=== PATIENT | female | born 1990 | race Hispanic/Latino ===

== ENCOUNTER → 2017-09-04 | Day surgery (SDC) | payer OTHER ==
--- NOTE | 2017-09-04 09:30 | PDOC.EVN ---
Event Note - Event Note Event Note: @0920: H&P: Patient has full hand written H&P in cvhart..see schanned note. In Brief: CC: pain and frequency with urination at 25 weeks 4 days HPI: 26 yo [facility] patient without other issues with urinary sxs. Good FM, no VB, no CTX, no ROM, no other complaints. No fevers. Review of Systems: complete 12 points done and as per HPI Past medical: negative Past OB: PIH HX x 2 in past MEDS: ASA q d, PNV Allergies none Surge; None PHYSICAL VSSAFEB No VB or ROM CX deferred as no ctx Monitors mod variability, no CTX Assessment and plan: 25 weeks possible UTI (dysuria, frequency): Check UA Keep on monitors
[2017-09-04 09:46] VITALS: BMI 29.7
[2017-09-04 09:50] LABS: Bilirubin Negative (Negative); Blood, Urine Large (Negative); Clarity CLOUDY (Clear); Glucose, Urine (Dipstick) Negative (Negative); Leukocyte Large (Negative); Nitrite Positive (Negative); Protein, Urine (Dipstick) Negative (Neg-Trace); Specific Gravity, Urine 1.005 (1.002-1.036); Urobilinogen 0.2 mg/dL (0.2-1.0)
[2017-09-04 09:52] LABS: Bacteria/HPF 4+ HPF (None Seen); Hyaline Casts/LPF 0-3 HYALINE CAST LPF (0-3 Hyaline); Pathc Cast-AUWi Flag 0.14 (0-2.49); Squamous Epithelial 0-3 HPF (0-3)
--- NOTE | 2017-09-04 09:59 | PDOC.LDHP ---
Labor and Delivery H&P Chief complaint: other (Dysuria) HPI: 26 year old at 25.4 wks, uncertain of wether dated by LMP or 1st trimester u/s, presents with a 1 day history of dysuria and urinary frequency. Patient denies vaginal bleeding, vaginal discharge, LoF, headache, swelling, shortness of breath or chest pain. Patient has no complications in current . But she does have a history of pre-eclampsia in 2 prior pregnancies. Current gestational age (weeks): 25 (25.4) Due date: 12/14/17 Dating criteria: other (uncertain) Grav: 4 Para: 2 OB History Details: 1. Hx of pre-eclampsia in 2 prior pregnancies Current complications: none Abnormal US findings: No Current medications: pre-glenda vitamins, other (ASA) Allergies/Adverse Reactions: Allergies Allergy/AdvReac Type Severity Reaction Status Date / Time No Known Allergies Allergy Verified 09/04/17 09:24 Social history: none - Physical Exam Vital signs reviewed and normal: yes General: NAD, resting Heart: RRR Lungs: CTAB Abdomen: gravid Extremeties: no edema FHT: category 1, variability present [place] contractions every: None - Assessment Dysuria likely 2/2 UTI - UA pending - No history of recent antibiotic use - Otherwise asymptomatic - Plan for d/c home with oral antibiotics if UA positive sIUP - At 25.4 wks - No labor s/s Hx of pre-eclampsia - On ASA
--- NOTE | 2017-09-04 10:16 | PDOC.EVN ---
Event Note - Event Note Event Note: UA clean catch positive for large blood, positive nitrites, large leukocyte esterase, >50 WBC, and 4+ bacteria. Will send patient home on macrobid 100 mg BID for 7 days. Follow up with [facility] as scheduled.
== END | disposition home or self-care (01) ==
LOC: L&D/OP 08:40
PROVIDERS: ATTEND Obstetrics & Gynecology
DX: O99.89 Other specified diseases and conditions complicating pregnancy, childbirth and the puerperium (principal); R30.0 Dysuria; R35.0 Frequency of micturition; Z3A.25 25 weeks gestation of pregnancy; Z79.82 Long term (current) use of aspirin; Z79.899 Other long term (current) drug therapy
CPT/HCPCS: 81003; 81015

== ENCOUNTER 2017-10-29 12:27 | Emergency (ER) | payer OTHER, SELFPAY ==
[2017-10-29] MEDS ORDERED: Acetaminophen 500 MG TAB ONE (13:32)
[2017-10-29] MEDS ORDERED: Metoclopramide HCl 10 MG/2 ML VIAL ONE (13:32)
[2017-10-29] MEDS ORDERED: diphenhydrAMINE 50 MG/ML VIAL ONE (13:32)
[2017-10-29 14:01] LABS: Bilirubin Negative (Negative); Blood, Urine Trace (Negative); Clarity CLOUDY (Clear); Glucose, Urine (Dipstick) Negative (Negative); Leukocyte Moderate (Negative); Nitrite Negative (Negative); Protein, Urine (Dipstick) Negative (Neg-Trace); Specific Gravity, Urine 1.009 (1.002-1.036); Urobilinogen 0.2 mg/dL (0.2-1.0)
[2017-10-29 14:03] LABS: Bacteria/HPF None Seen HPF (None Seen); Hyaline Casts/LPF 0-3 HYALINE CAST LPF (0-3 Hyaline)
== END 2017-10-29 15:18 | disposition home or self-care (01) ==
LOC: ERS 12:27
DX: O99.89 Other specified diseases and conditions complicating pregnancy, childbirth and the puerperium (principal); R51 Headache; Z3A.33 33 weeks gestation of pregnancy
CPT/HCPCS: 81003; 81015; 87086; 96365; 96375; J1200; J2765

== ENCOUNTER 2017-11-08 09:58 | Day surgery (SDC) | payer SELFPAY ==
[2017-11-08 10:36] VITALS: BMI 30.9
--- NOTE | 2017-11-08 11:21 | PDOC.LDHP ---
Labor and Delivery H&P Chief complaint: other (Numbness and tingling in left arm) HPI: This is a 27 yo H female at 34.6 wks by LMP consistent with 9.1 wk ultrasound with a chief complaint of left arm numbness and tingling. She reports it started last Wednesday and was consistent through the week. One Wednesday, the pain was the worst 8/10 and located in her mid anterior forearm. Pt. complains that the pain has prevented her from sleeping. She states that her hand feels weak and that sensation is different between her two hands. Pt. denies injury. Tylenol did not make the pain better. Also states she had a headache described as all over her head. She also had a brief (seconds) time of seeing stars while driving. Current gestational age (weeks): 34 (34.6) Due date: 12/14/17 Dating criteria: last menstrual period, first trimester ultrasound (Confirmed by 9.1 wk) Grav: 4 () Para: 2 OB History Details: Hx of preeclampsia x2, history of ectopic with D&C. Current complications: none Abnormal US findings: No Current medications: pre-glenda vitamins Previous surgical history: other (D&C) Social history: none - Physical Exam Vital signs reviewed and normal: yes General: NAD, resting Heart: RRR Lungs: nonlabored breathing Abdomen: NTTP Extremeties: no edema FHT: variability present (Baseline 140s with accelerations, occational contractions) - Assessment This is a 27 yo female at 34.6 Carpal tunnel -Pt. has some findings consistent with carpel tunnel. We are having her fitted for a cockup splint and continuing tylenol. We are also providing reassurance about her condition and her . We will have pt. follow up with Dr. Collado tomorrow. Concern for pre-eclampsia -Pt. has hx or pre-eclampsia and has been having headaches and has seen some stars transiently. Her BP has been below worrisome ranges and a urine 10 days ago was negative for protein. We are checking urine protein and creatinine as well as CBC and CMP to rule out any other pre-eclamptic findings at this time. Disposition: home today <Hi Garcia - Last Filed: 11/08/17 11:47> <Viraj Irizarry - Last Filed: 11/10/17 15:51> Allergies/Adverse Reactions: Allergies Allergy/AdvReac Type Severity Reaction Status Date / Time No Known Allergies Allergy Verified 11/08/17 10:25 Attending Addendum - Attending Addendum Date/Time: 11/10/17 6261 I personally evaluated the patient and discussed the management with Dr. Garcia on 11/08/17 I agree with the History, Examination, Assessment and Plan documented above with any addition or exceptions noted below. 27 y.o. at 34.6 wks EGA with h/o preeclampsia in prior but none so far this time, here for Left forearm numbness, paresthesias and ache, particularly at night but all day as well for 1 week worsened today. PE showed positive Tinnel's and Phalen's signs, lungs CTA, no edema, normal DTR's. FHT' s Category I with no contractions. Reported Headache and vision changes were brief (<15 minutes for CARMICHAEL, seconds for scotomata) and self-resolved yesterday. W/U negative for objective findings of pre-ecclampsia. Will arrange for CTS splint and discharge to f/u soon in clinic. Labor and Pre-E precautions given prior to d/c. <Viraj Irizarry A - Last Filed: 11/10/17 15:51>
[2017-11-08 11:46] LABS: #Basophils 0.1 thou/uL (0.0-0.2); #Eosinphils 0.1 thou/uL (0.0-0.7); #Lymphocytes 1.8 thou/uL (1.20-3.40); #Monocytes 0.6 thou/uL (0.11-0.59); #Neutrophils 4.3 thou/uL (1.40-6.50); %Basophils 0.7 % (0.0-1.0); %Eosinophils 1.5 % (0.0-10.0); %Monocytes 9.3 % (0.0-10.0); %Neutrophils 62.4 % (42.0-75.0); Hemoglobin 11.1 g/dL (12.0-16.0); Mean Corpuscular HGB CONC 34.1 g/dL (32.0-36.0); Mean Corpuscular Hemoglobin 29.1 pg (27.0-31.0); Mean Corpuscular Volume 85.5 fL (78.0-98.0); Mean Platelet Volume 7.9 fL (7.4-10.4); Platelet Count 253 thou/uL (130-400); RBC Distribution Width 13.3 % (11.5-14.5); Red Blood Cell (RBC) Count 3.81 mill/uL (4.20-5.40); White Blood Cell (WBC) Count 6.8 thou/uL (4.8-10.8)
[2017-11-08 12:15] LABS: ALT (SGPT) 17 U/L (8-55); AST (SGOT) 17 U/L (5-34); Albumin 3.3 g/dL (3.5-5.0); Alkaline Phosphatase 159 U/L (40-150); Anion Gap 12 mmol/L (10-20); BUN (Urea Nitrogen) 6 mg/dL (7.0-18.7); Bilirubin, Total 0.2 mg/dL (0.2-1.2); Calc. Creatinine Clearance 150 mL/min (70-130); Carbon Dioxide 23 mmol/L (22-29); Chloride 106 mmol/L (98-107); Estimated GFR-MDRD Greater than 90; Globulin 2.7 g/dL (2.4-3.5); Glucose 80 mg/dL (70-105); Potassium 3.7 mmol/L (3.5-5.1); Sodium 137 mmol/L (136-145)
[2017-11-08 12:40] LABS: Creatinine, Urine 62.67 mg/dL (47-110); Protein, Urine Random Quant Less than 10 mg/dL (1-14)
== END 2017-11-08 14:20 | disposition home health service (06) ==
LOC: L&D/OP 09:58
PROVIDERS: ATTEND Family Medicine
DX: O99.89 Other specified diseases and conditions complicating pregnancy, childbirth and the puerperium (principal); R20.2 Paresthesia of skin; R20.0 Anesthesia of skin; Z3A.34 34 weeks gestation of pregnancy
CPT/HCPCS: 36415; 80053; 82570; 84156; 85025; 99283

== ENCOUNTER 2017-11-17 12:37 | Day surgery (SDC) | payer SELFPAY ==
[2017-11-17 13:25] VITALS: BMI 31.6
--- NOTE | 2017-11-17 13:35 | PDOC.LDHP ---
Labor and Delivery H&P Chief complaint: other (UTI sx) HPI: 27 y/o at 36w1d, patient of [facility], presents with frequency and dysuria. Was treated for UTI 2 weeks ago. Has had 1 ctx per hour and some increased mucus. Denies LOF, VB, or decreased FM. ROS neg for HEENT, cv, pulm, gi, gu, neuro, psych, skin, musculoskeletal, or constitutional symptoms other than mentioned above. OB History Details: 2 prior late SVDs Current complications: none Current medications: pre- vitamins Previous surgical history: none Allergies/Adverse Reactions: Allergies Allergy/AdvReac Type Severity Reaction Status Date / Time No Known Allergies Allergy Verified 11/08/17 10:25 Social history: none - Physical Exam Vital signs reviewed and normal: yes General: NAD, resting Lungs: nonlabored breathing Abdomen: gravid Extremeties: no edema FHT: category 1 (130s, mod variability, + accels, no decels) [place] contractions every: occasional - Vaginal Exam cm dilated: 1 Effacement: 50% Station: -2 - OB Labs Additional Labs: Laboratory Results - last 24 hr 11/17/17 13:45 Urine Color YELLOW Urine Clarity CLEAR Urine pH 7.0 Ur Specific [place] 1.008 Urine Protein Negative Urine Glucose (UA) Negative Urine Ketones Negative Urine Blood Small H Urine Nitrite Negative Urine Bilirubin Negative Urine Urobilinogen 0.2 Ur Leukocyte Esterase Trace H Urine RBC 0-3 Urine WBC 0-3 Ur Squamous Epith Cells 0-3 Ur Transition Epith Cell 0-3 Ur Renal Epithelial Cell 0-3 Urine Bacteria None Seen Hyaline Casts 0-3 HYALINE CAST - Assessment 27 y/o at 36w1d with no e/o UTI or active labor. status reassuring with reactive NST. - Plan -: D/c home with precautions. Advised to keep all appointments and continue daily FACs.
[2017-11-17 14:13] LABS: Bilirubin Negative (Negative); Blood, Urine Small (Negative); Clarity CLEAR (Clear); Glucose, Urine (Dipstick) Negative (Negative); Leukocyte Trace (Negative); Nitrite Negative (Negative); Protein, Urine (Dipstick) Negative (Neg-Trace); Specific Gravity, Urine 1.008 (1.002-1.036); Urobilinogen 0.2 mg/dL (0.2-1.0)
[2017-11-17 14:14] LABS: Bacteria/HPF None Seen HPF (None Seen); Hyaline Casts/LPF 0-3 HYALINE CAST LPF (0-3 Hyaline); Pathc Cast-AUWi Flag 0.29 (0-2.49); RBC/HPF 0-3 HPF (0-3); Squamous Epithelial 0-3 HPF (0-3); WBC/HPF 0-3 HPF (0-3)
[2017-11-17 14:24] LABS: Renal Epithelial 0-3 HPF (0-3); Transitional Epithelial 0-3 HPF (0-3)
== END 2017-11-17 14:38 | disposition home or self-care (01) ==
LOC: L&D/OP 12:37
PROVIDERS: ATTEND Obstetrics & Gynecology
DX: O47.03 False labor before 37 completed weeks of gestation, third trimester (principal); Z3A.36 36 weeks gestation of pregnancy
CPT/HCPCS: 81001; 99283

== ENCOUNTER 2017-12-06 02:01 | Day surgery (SDC) | payer OTHER ==
[2017-12-06 02:35] VITALS: BP 128/69; TEMP 98.4; BMI 31.4
--- NOTE | 2017-12-06 02:43 | PDOC.FPROB ---
FMR OB H&P: HPI - History of Present Illness Chief Complaint: Loss of fluid History of Present Illness: 27 year old at 38.6 wks by LMP consistent with 9.1 wk sono presents with CC of loss of of fluid. Patient reports she lost a gush of clear fluid at 12:50 this morning. Reports some mild contractions 5-10 min apart. Denies vaginal bleeding. FMR OB H&P: Current - Care : 4 Para: 2 (1112) Gestational age: 38.6 Due date: 12/14/2017 Dating Criteria: LMP/9.1wk sono - OB Labs Blood type: O RH: positive Antibody Screen: negative HIV: negative RPR: negative HepBsAg: negative Rubella: immune 1 hour gtt: 114 GBS: negative FMR OB H&P: History - Social History Social History: No tobacco, alcohol, or drug use. FMR OB H&P: Medications - Current Home Medications: Medication Instructions Recorded Confirmed Type 21/Iron Fu/Folic Acid 1 tablet PO DAILY 09/12/12/06/17 History [ Complete Caplet] Allergies/Adverse Reactions: Allergies Allergy/AdvReac Type Severity Reaction Status Date / Time No Known Allergies Allergy Verified 12/06/17 02:23 FMR OB H&P: ROS - Review of Systems General: denies: fever/chills Eyes: denies: vision changes, double vision Respiratory: denies: cough, shortness of breath Gastrointestinal: denies: nausea, vomiting Genitourinary (Female): reports: contractions. denies: vaginal discharge, vaginal bleeding FMR OB H&P: Vital Signs - Maternal Vital signs: Vital Signs - First Documented Temp Pulse Resp BP 98.4 F 71 16 128/69 12/06/17 02:22 12/06/17 02:22 12/06/17 02:22 12/06/17 02:22 - Heart Tones Baseline: 130 Variability: moderate Acceleration: present Deceleration: absent Category: category 1 [place] contractions every: 6 FMR OB H&P: Physical Exam - Physical Exam General: NAD Heart: RRR, normal S1/S2 General: CTAB, no respiratory distress, no wheezing Abdomen: gravid, non-tender FMR OB H&P: A/P Discussion: Date/Time: 12/06/17 0241 @ 38.6 wks with CC of loss of fluid 1. tIUP @ 38.6 wks - amnisure negative - sterile spec exam performed with cough maneuver at 03:15-03:25 showed mucus discharge, not suggestive of ROM - 05/23/-2 - Will get sono to check LIGIA. If normal, will discharge home with ROM ruled out 2. History of preE - BPs have been normal this - BP WNL today - on ASA ppx This H&P was discussed with Dr. Castellanos who agree with the above documentation and plan.
[2017-12-06 02:44] LABS: Amnisure Test No Membranes Rupture (No Rupture)
[2017-12-06 02:45] LABS: Amnisure Internal Control QC ACCEPTABLE (ACCEPTABLE)
--- NOTE | 2017-12-06 03:35 | PDOC.EVN ---
Event Note - Event Note Event Note: Sterile Spec Exam Faculty note: Exam at : Sterile Spec exam discussed with patient by me at bedside. I performed SSE with Martha (our FM Resident) and did not see evidence of ROM although she did have a loose mucous plug at cervical OS. No pooling with manuevers. Amnisure was negative. I have discussed these findings with the patient and partner at bedside. I have placed a pad on the vagina to see if leakage occurs. I have ordred a limited sono to check LIGIA as ancillary test (will keep if oligo) due to patient reporting "loss of fluid" at home. Cervix 05/23/2 by me, after sterile spec exam. If sono shows normal LIGIA, with normal SSE and negative ...I will be comfortable sending home. Limitations of sono in detecting ROM was discussed with her.
--- NOTE | 2017-12-06 04:23 | PDOC.EVN ---
Event Note - Event Note Event Note: LIGIA by isabel 8, cephalic Perineal pad dry OK for discharge
--- NOTE | 2017-12-06 09:20 | ULT ---
PRELIMINARY REPORT/[facility]/EMERGENTY AFTER-HOURS PROCEDURE US After First Trimester, Transabdominal CLINICAL HISTORY: 27 years old, female; Signs and symptoms; Lmp or gestational age (in weeks): 38wks; Other: Possible r om; TECHNIQUE: Real-time transabdominal obstetrical ultrasound of the maternal pelvis and a second or third trimeste r with image documentation. COMPARISON: No relevant prior studies available. FINDINGS: Single living fetus in cephalic position. Posterior/left-sided placenta. No visible placental abnormality on the provided images. Amniotic fluid volume appears within normal limits, LIGIA 8.5 cm. BPD: , 9.7 cm. , 39 weeks, 6 days HC: , 34.2 cm. , 39 weeks, 3 days AC: , 33.2 cm. , 37 weeks, 1 day FL: , 7.3 cm. , 37 weeks, 1 day Composite age: 38 weeks, 3 days. Estimated weight: 3218 grams, (7 lbs. 4 oz.). heart activity documented by the technologist, 135 bpm. Complete/detailed evaluation of anatomy was not performed at this time. No visible maternal adnexal abnormality. The urinary bladder was not completely evaluated/imaged at this time. IMPRESSION: Single living fetus, composite age: 38 weeks, 3 days. Amniotic fluid volume appears within normal limits, LIGIA 8.5 cm. Posterior/left-sided placenta. No visible placental abnormality on the provided images. Other details discussed above. Thank you for allowing us to participate in the care of your patient. Dictated and Authenticated by: Omid Miranda MD 12/06/2017 4:52 AM Central Time ([place] & [place]) FINAL REPORT LIMITED OB ULTRASOUND GREATER THAN 14 WEEKS: EMERGENCY AFTER HOURS EXAMINATION TIME: 4:08 a.m. DATE: 12/06/17. FINDINGS/IMPRESSION: Gestational age 38 weeks 3 days. Estimated weight 3218 grams. 135 b.p.m. Cephalic presentati on with posterior and left-sided placenta. anatomy was not completely evaluated on this study; however, 4-chamber heart, stomach, kidneys, bladder, and spine were evaluated and appear unremarkable as visualized. POS: [facility]
== END 2017-12-06 04:30 | disposition home or self-care (01) ==
LOC: L&D/OP 02:01
PROVIDERS: ATTEND Obstetrics & Gynecology
DX: O99.89 Other specified diseases and conditions complicating pregnancy, childbirth and the puerperium (principal); N89.8 Other specified noninflammatory disorders of vagina; Z3A.38 38 weeks gestation of pregnancy; Z79.899 Other long term (current) drug therapy
CPT/HCPCS: 76815; 84112; 99283

== ENCOUNTER 2017-12-13 04:17 | Inpatient (IN) | payer MEDICAID, OTHER, SELFPAY ==
--- NOTE | 2017-12-13 05:04 | PDOC.LDHP ---
Labor and Delivery H&P Chief complaint: contractions HPI: Patient presents for painful contractions 11/05 that began at 1am occurring q3- 5minutes. Vaginal mucus discharge with minimal blood began at that time as well. Denies loss of fluid, nausea, vomiting, chest pain, SOB, change in vision. Current gestational age (weeks): 39 (39.6) Due date: 12/14/17 Dating criteria: last menstrual period (consistent with 9.2 wk sono) Grav: 4 Para: 2 (1112) OB History Details: History of PreE. No BP abnormalities this . Current complications: none Abnormal US findings: No (Limited U/S completed 12/06 cephalic position, posterior/L-side placenta) Past Medical History: none Current medications: pre-glenda vitamins, other (was taking aspirin. Last taken 1 wk ago.) Previous surgical history: none Social history: none - Physical Exam Vital signs reviewed and normal: yes General: NAD Heart: RRR Lungs: nonlabored breathing Abdomen: gravid Extremeties: trace edema FHT: category 1 [place] contractions every: 2-3 - Vaginal Exam cm dilated: 3 (3.5) Effacement: 75% (80) Station: -2 - OB Labs Blood type: O RH: positive Antibody Screen: negative HIV: negative RPR: negative HEPSAg: negative 1 hour GCT: negative GBS: negative Urine drug screen: not done Rubella: immune - Plan -: @ 39.6 wks presents with painful contractions 1. tIUP @ 38.6 wks - 3.5/80/-2 @ 0450 - painful contractions q2-3 min - no loss of fluid. reports mucus discharge with minimal blood - continue FHR - will recheck in 2 hours to assess for cervical change 2. History of preE - BPs have been normal this - BP WNL today - was on ASA for ppx This H&P was discused with Dr. Harper who agrees with the above documentation and plan. <Martha Young - Last Filed: 12/13/17 05:42> <Chapo Harper - Last Filed: 12/13/17 06:28> Allergies/Adverse Reactions: Allergies Allergy/AdvReac Type Severity Reaction Status Date / Time No Known Allergies Allergy Verified 12/13/17 05:14 Attending Addendum - Attending Addendum Date/Time: 12/13/17 6762 I have evaluated the patient and discussed the management with Dr. Young. I agree with the Assessment and Plan documented above. <Chapo Harper - Last Filed: 12/13/17 06:28>
[2017-12-13 05:11] VITALS: BMI 31.1
[2017-12-13] MEDS ORDERED: NS / Oxytocin 40 units/1000ml 1,000 ML IV PRN (07:17)
[2017-12-13] MEDS ORDERED: Ibuprofen 800 MG TAB PO PRN (07:17)
[2017-12-13] MEDS ORDERED: Ondansetron HCl/PF 4 MG/2 ML Vial IVP PRN ×3 (07:17→21:31)
[2017-12-13] MEDS ORDERED: Lidocaine 1% (PF) 30 ML VIAL SC PRN (07:17)
[2017-12-13] MEDS ORDERED: Promethazine HCl 25 MG/ML VIAL IM PRN ×2 (07:17→16:42)
--- NOTE | 2017-12-13 07:18 | PDOC.LDPN ---
Labor & Delivery Progress Note - Subjective Subjective: painful contractions - Objective Vital signs reviewed and normal: yes General: resting Dilation: 5 Effacement: 75% Station: -3 [place] contractions every: 3-4min Plan: continue plan of care -: @ 39.6 wks presents with painful contractions 1. tIUP @ 39.6 wks - /-2 @0700 - painful contractions q3-4min - Cat I, continue FHR - will admit due to labor, recheck in 2 hours to assess for cervical change 2. History of preE - BPs have been normal this - BP WNL today - was on ASA for ppx <Evelyn Kaye - Last Filed: 12/13/17 07:23> Attending Addendum - Attending Addendum Date/Time: 12/16/17 0832 I personally evaluated the patient and discussed the management with Dr. Kaye. I agree with the Examination, Assessment and Plan documented above. <Chapo Harper - Last Filed: 12/16/17 08:33>
[2017-12-13] MEDS: Lactated Ringer's 1,000 ML IV SCH ×3 (07:52→19:16)
[2017-12-13 08:10] LABS: Hemoglobin 11.7 g/dL (12.0-16.0); Mean Corpuscular HGB CONC 32.8 g/dL (32.0-36.0); Mean Corpuscular Volume 85.3 fL (78.0-98.0); Mean Platelet Volume 8.1 fL (7.4-10.4); Platelet Count 239 thou/uL (130-400); RBC Distribution Width 14.1 % (11.5-14.5); Red Blood Cell (RBC) Count 4.19 mill/uL (4.20-5.40); White Blood Cell (WBC) Count 10.7 thou/uL (4.8-10.8)
[2017-12-13 08:50] LABS: HBSAg Index 0.17 S/CO (0-0.99); Hep B Surf Ag Non-Reactive S/CO (NonReactive); Syphilis Antibody Nonreactive (Nonreactive); Syphilis Antibody Index 0.02 S/CO (<1.00 Non-Reactive)
--- NOTE | 2017-12-13 09:26 | PDOC.LDPN ---
Labor & Delivery Progress Note - Subjective Subjective: comfortable, painful contractions, vaginal pressure - Objective Vital signs reviewed and normal: yes General: NAD, resting Dilation: 6 Effacement: 75% (80) Station: -2 FHT: category 1 [place] contractions every: 3-5min Plan: continue plan of care -: @ 39.6 wks presents with painful contractions 1. tIUP @ 39.6 wks - /-2 @0900 - painful contractions q3-5min - Cat I, continue FHR - will admit due to labor, recheck in 2 hours to assess for cervical change, possible AROM if cervix is more midposition 2. History of preE - BPs have been normal this - BP WNL, will continue to monitor - was on ASA for ppx
--- NOTE | 2017-12-13 11:23 | PDOC.LDPN ---
Labor & Delivery Progress Note - Subjective Subjective: comfortable, painful contractions - Objective Vital signs reviewed and normal: yes General: NAD, resting Dilation: 7 Effacement: 75% Station: -2 FHT: category 1 [place] contractions every: 3-4min AROM: meconium stained fluid (light mec) Plan: continue plan of care -: @ 39.6 wks presents with painful contractions 1. tIUP @ 39.6 wks - //-2 @1100 - ctx 3-5min - Cat I, continue FHR - AROM at 1115, light mec - continue mgmt of active labor 2. History of preE - BPs have been normal this - BP WNL, will continue to monitor - was on ASA for ppx
[2017-12-13] MEDS ORDERED: NS w/ Oxytocin 10 units 500 ML ONE (13:16)
[2017-12-13] MEDS ORDERED: DISCONTINUE ALL PREVIOUS NARCOTICS FS SCH (15:45)
[2017-12-13] MEDS ORDERED: Bupivacaine 0.5% 20 ML, fentaNYL Citrate/PF 400 MCG in Sodium Chloride 0.9% 72 ML EPIDURAL SCH (15:45)
--- NOTE | 2017-12-13 15:52 | PDOC.LDPN ---
Labor & Delivery Progress Note - Subjective Subjective: painful contractions, vaginal pressure - Objective Vital signs reviewed and normal: yes General: breathing through contractions Dilation: 7.5 Effacement: 100% Station: 0 [place] contractions every: 3-5min Plan: continue plan of care -: 1. sIUP, active labor -SVE: 7.5/100/0 at 1526 -Pit at 6 -FHT: Cat 1 -CTX: 3-5min -baby position is ROT, will use peanut ball to encourage reposition of baby -desires epidural, order placed 2. hx of preE in prior -BPs during admission have been WNL -will continue to monitor
--- NOTE | 2017-12-13 15:56 | PDOC.LDPN ---
Labor & Delivery Progress Note - Subjective Subjective: painful contractions, vaginal pressure - Objective Vital signs reviewed and normal: yes General: NAD, breathing through contractions Dilation: 7 Effacement: 75% (80) Station: -1 FHT: category 1 Plan: continue plan of care -: 1. sIUP, active labor -SVE: /-1 at 1315 -FHT: Cat 1 -CTX: 4-6min -will start pit at this time 2. hx of preE in prior -BPs during admission have been WNL -will continue to monitor
[2017-12-13] MEDS ORDERED: Bupivacaine 0.5% 10 ML VIAL ONE (16:02)
[2017-12-13] MEDS ORDERED: Fentanyl 100 MCG/2 ML VIAL ONE (16:02)
[2017-12-13] MEDS: NS w/ Oxytocin 10 units 500 ML IV SCH (16:34)
[2017-12-13] MEDS ORDERED: Bupivacaine 0.25% 10 ML VIAL EPIDURAL ONE (16:42)
[2017-12-13] MEDS ORDERED: Naloxone HCl 0.4 mg/ml Vial IVP PRN ×2 (16:42)
[2017-12-13] MEDS ORDERED: Fentanyl 100 MCG/2 ML VIAL I-THECAL ONE (16:42)
[2017-12-13] MEDS ORDERED: Lactated Ringer's 500 ML IV PRN (16:42)
[2017-12-13] MEDS ORDERED: Eucerin (Mineral Oil/Petrolatum,White) 30 gm Jar TOP PRN (16:42)
[2017-12-13] MEDS ORDERED: diphenhydrAMINE 50 MG/ML VIAL IVP PRN (16:42)
[2017-12-13] MEDS ORDERED: ePHEDrine/0.9% NaCl/PF SYRINGE 50 mg/10 ml SLOW IVP PRN (16:42)
[2017-12-13] MEDS ORDERED: Acetaminophen 325 MG TAB PO PRN (16:42)
[2017-12-13] MEDS ORDERED: Communication Order-Pharmacy FS SCH (16:45)
[2017-12-13] MEDS ORDERED: fentaNYL Citrate/PF 400 MCG, Bupivacaine 0.5% 20 ML in Sodium Chloride 0.9% 72 ML EPIDURAL SCH (16:45)
--- NOTE | 2017-12-13 17:05 | PDOC.LDPN ---
Labor & Delivery Progress Note - Subjective Subjective: comfortable, vaginal pressure - Objective Vital signs reviewed and normal: yes General: NAD, resting Dilation: 9 Effacement: 100% Station: 0 FHT: category 1 [place] contractions every: 2-3min Plan: continue plan of care -: 1. sIUP, active labor -SVE: 9/100/0 at 1526 -Pit at 6 -FHT: Cat 1 -CTX: 3-5min -baby position is ROT, will use peanut ball to encourage reposition of baby -epidural in place 2. hx of preE in prior -BPs during admission have been WNL -will continue to monitor
[2017-12-13] MEDS ORDERED: Misoprostol 200 MCG TAB ONE (21:24)
[2017-12-13] MEDS ORDERED: Adacel (T-DAP) 0.5 ML VIAL IM ONE (21:31)
[2017-12-13] MEDS ORDERED: Milk Of Magnesia 30 ML UDCUP PO PRN (21:31)
[2017-12-13] MEDS ORDERED: Bisacodyl 10 MG SUPP PR PRN (21:31)
[2017-12-13] MEDS ORDERED: Lanolin Ointment 7 GM TUBE TOP PRN (21:31)
[2017-12-13] MEDS ORDERED: HYDROcodone/Acetaminophen 5/325 mg Tablet PO PRN (21:31)
[2017-12-13] MEDS ORDERED: Benzocaine/Menthol 20-0.5% 60 ML CAN TOP PRN (21:31)
--- NOTE | 2017-12-13 21:43 | PDOC.OPDEL ---
OB Operative/Delivery Note Delivery Dr/Surgeon: Tobias/Hannah Assist: Attending Mark Pre-Delivery Diagnosis: active labor Procedure/Post Delivery Dx: operative vaginal delivery (Vacuum applied 2/2 failure to descend, maternal exhaustion and variable decelerations after prolonged second stage of labor. Baby initially in ROT position. Vacuum applied for total of 2 contractions and removed for final delivery. No complications and mother and baby tolerated procedure well.) Weeks gestation: 39 (+6) Anesthesia: epidural - Additional Findings/Plan Placenta delivered: spontaneous Repaired Obstetrical Laceration: none Estimated blood loss: 400 Compilations/Other Findings: Vacuum assisted delivery 2/2 prolonged second stage of labor, maternal exhaustion and recurrent variable decelerations with contractions. 800mcg given pr post . Viable F delivered over intact perineum in ROT position with vacuum assist @ 2112 and apgars 9/9. Post delivery plan: routine recovery <Rehan Collado - Last Filed: 12/13/17 21:38> Attending Addendum - Attending Addendum Date/Time: 12/13/172224 I was present and scrubbed for the entire successful vacuum-assisted vaginal delivery for maternal exhaustion, variable decelerations, and acynclitism with minimal descent with maternal pushing alone. EFW 3500. There were no pop-offs and baby delivered over an intact perineum. Mom and baby tolerated the procedure well. <Yesy Flores - Last Filed: 12/13/17 22:29>
[2017-12-13] MEDS ORDERED: NS / Oxytocin 40 units/1000ml 1,000 ML IV SCH (21:45)
[2017-12-14] MEDS: Ibuprofen 800 MG TAB PO SCH ×4 (01:55→21:18)
[2017-12-14 05:14] LABS: Hemoglobin 11.3 g/dL (12.0-16.0); Mean Corpuscular HGB CONC 33.6 g/dL (32.0-36.0); Mean Corpuscular Hemoglobin 28.9 pg (27.0-31.0); Mean Corpuscular Volume 85.8 fL (78.0-98.0); Mean Platelet Volume 8.9 fL (7.4-10.4); Platelet Count 227 thou/uL (130-400); RBC Distribution Width 14.3 % (11.5-14.5); Red Blood Cell (RBC) Count 3.91 mill/uL (4.20-5.40); White Blood Cell (WBC) Count 17.5 thou/uL (4.8-10.8)
[2017-12-14] MEDS: Lactated Ringer's 1,000 ML IV SCH ×3 (07:42→23:50)
[2017-12-14] MEDS ORDERED: HYDROcodone/Acetaminophen 5/325 mg Tablet PO PRN (07:44)
--- NOTE | 2017-12-14 07:47 | PDOC.PP ---
Post Progress Note Post Day #: 1 Subjective: 27 yo G4 pp day 1 delivered via vacuum assisted vaginal delivery. Minor vaginal and perineal pain controlled with pain medications and cold pack. Denies fever, chills, cp, sob. No acute events overnight. Scant lochia. PO intake tolerated: yes Flatus: yes Ambulation: yes Vital Signs (12 hours) Temp Pulse Resp BP Pulse Ox 12/14/17 07:35 98.6 F 77 20 99/51 L 96 12/14/17 02:45 98.1 F 97 18 106/56 L 97 12/14/17 01:45 98.0 F 83 18 110/58 L 96 12/14/17 00:45 98.0 F 68 16 110/56 L 95 12/13/17 23:35 98.5 F 56 L 18 129/63 99 Weight Weight 79.379 kg - Physical Examination General: NAD Cardiovascular: no m/r/g, RRR Respiratory: clear to auscultation bilaterally, non-labored breathing Abdominal: + bowel sounds, lochia, no distention, appropriately TTP Neurological: no gross focal deficits Psychiatric: A&Ox3, normal affect Result Diagrams: 12/14/17 04:46 Additional Labs: Post Labs Blood Type O POSITIVE 12/13/17 08:01 Hep Bs Antigen Non-Reactive S/CO (NonReactive) 12/13/17 08:01 (1) Vaginal delivery Code(s): O80 - ENCOUNTER FOR FULL-TERM UNCOMPLICATED DELIVERY Status: Acute - Assessment/Plan TIUP, dlievered: - pp day 1 s/p vacuum assisted delivery - tolerating po, passing flatus, ambulating - Hgb stable - pain control prn norco, ice pack and amber ibuprofen - will plan for dc to home tomorrow
[2017-12-14] MEDS: Docusate Calcium (SURFAK) 240 MG CAP PO SCH ×2 (09:47→21:18)
[2017-12-14] MEDS: Prenatal Vitamin 1 TAB PO SCH (09:47)
[2017-12-14] MEDS: NS w/ Oxytocin 10 units 500 ML IV SCH (10:37)
[2017-12-15] MEDS: Ibuprofen 800 MG TAB PO SCH (05:56)
[2017-12-15] MEDS: Lactated Ringer's 1,000 ML IV SCH (05:57)
--- NOTE | 2017-12-15 06:26 | PDOC.PP ---
Post Progress Note Post Day #: 2 Subjective: Doing well, no problems with urination. Wants [facility] home today PO intake tolerated: yes Flatus: yes Ambulation: yes Vital Signs (12 hours) Temp Pulse Resp BP Pulse Ox 12/14/17 20:00 97.9 F 63 18 127/67 96 Weight Weight 175 lb - Physical Examination General: NAD Cardiovascular: no m/r/g Respiratory: clear to auscultation bilaterally Abdominal: + bowel sounds, lochia, no distention, appropriately TTP Extremities: negative homans (B) Neurological: no gross focal deficits Psychiatric: A&Ox3, normal affect Result Diagrams: 12/14/17 04:46 Additional Labs: Post Labs Blood Type O POSITIVE 12/13/17 08:01 Hep Bs Antigen Non-Reactive S/CO (NonReactive) 12/13/17 08:01 (1) History of vacuum extraction assisted delivery Code(s): Z98.890 - OTHER SPECIFIED POSTPROCEDURAL STATES Status: Acute (2) Vaginal delivery Code(s): O80 - ENCOUNTER FOR FULL-TERM UNCOMPLICATED DELIVERY Status: Acute - Assessment/Plan S/P Vaccuum assisted delivery...decreased vag labial swelling now. OK for dsc. F/U with [facility]. Green sheet ([facility] SUMMARY) completed. Home today
--- NOTE | 2017-12-15 07:51 | PDOC.PP ---
Post Progress Note Post Day #: 2 Subjective: 27 yo F pp day 2 s/p vacuum assisted delivery. Reports improvement in vulvar pain and swelling. Pain controlled with ibuprofen and tylenol. Denies fever, chills, cp, sob, swelling, nvdc. PO intake tolerated: yes Flatus: yes Ambulation: yes Vital Signs (12 hours) Temp Pulse Resp BP Pulse Ox 12/14/17 20:00 97.9 F 63 18 127/67 96 Weight Weight 79.379 kg - Physical Examination General: NAD Cardiovascular: no m/r/g, RRR Respiratory: clear to auscultation bilaterally, non-labored breathing Abdominal: + bowel sounds, lochia, no distention, appropriately TTP Extremities: negative homans (B) Neurological: no gross focal deficits Psychiatric: A&Ox3, normal affect Result Diagrams: 12/14/17 04:46 Additional Labs: Post Labs Blood Type O POSITIVE 12/13/17 08:01 Hep Bs Antigen Non-Reactive S/CO (NonReactive) 12/13/17 08:01 (1) Vaginal delivery Code(s): O80 - ENCOUNTER FOR FULL-TERM UNCOMPLICATED DELIVERY Status: Acute - Assessment/Plan s/p vacuum assisted delivery pp day 2. Pain improved and controlled with tylenol and motrin . Stable for dc to home today with [facility] f/u @ [facility].
[2017-12-15 08:07] VITALS: BP 126/75; TEMP 97.8
[2017-12-15] MEDS: Docusate Calcium (SURFAK) 240 MG CAP PO SCH (08:49)
[2017-12-15] MEDS: Prenatal Vitamin 1 TAB PO SCH (08:49)
== END 2017-12-15 11:45 | disposition home or self-care (01) | DRG 775 ==
LOC: L&D/OP 04:17 → L&D 07:41 → 3SE 23:59
PROVIDERS: ADMIT Obstetrics & Gynecology; ATTEND Obstetrics & Gynecology
PROC: 10D07Z6 Extraction of Products of Conception, Vacuum, Via Natural or Artificial Opening (ICD-10-PCS; principal; 2017-12-13)
DX: O63.1 Prolonged second stage (of labor) (principal); O75.81 Maternal exhaustion complicating labor and delivery; O76 Abnormality in fetal heart rate and rhythm complicating labor and delivery; Z3A.39 39 weeks gestation of pregnancy; Z37.0 Single live birth
CPT/HCPCS: 36415; 51702; 85027; 86780; 86850; 86900; 86901; 87340; 99285; J2001; J3010; J3490; J7050